=== PATIENT | male | born 1950 | race Caucasian/White ===

== ENCOUNTER 2018-04-09 07:55 | Inpatient (IN) | payer OTHER ==
[2018-04-09] MEDS: NICARDipine HCL 30 MG CAPSULE PO (08:27)
[2018-04-09] MEDS: ASPIRIN 325 MG TAB PO (08:28)
[2018-04-09] MEDS: LABETALOL HCL 20MG INJ IV (08:28)
[2018-04-09 08:48] LABS: ADD MAN DIFF? NO
[2018-04-09 08:53] LABS: BASOPHIL # 0.1 10^3/ul (0.0-0.1); BASOPHILS % 1.6 % (0.0-2.0); EOSINOPHILS # 0.1 10^3/ul (0.0-0.5); EOSINOPHILS % 1.3 % (0.0-7.0); HEMATOCRIT 44.3 % (42.0-52.0); HEMOGLOBIN 14.6 g/dl (14.0-18.0); LYMPHOCYTES # 0.9 10^3/ul (0.8-2.9); LYMPHOCYTES % 12.6 % (15.0-51.0); MEAN CORPUSCULAR HEMOGLOBIN 29.9 pg (29.0-33.0); MEAN CORPUSCULAR VOLUME 90.8 fl (82.0-101.0); MEAN PLATELET VOLUME 12.1 fl (7.4-10.4); MONOCYTE # 0.4 10^3/ul (0.3-0.9); MONOCYTES % 5.4 % (0.0-11.0); NEUTROPHIL # 5.5 10^3/ul (1.6-7.5); NEUTROPHILS % 78.8 % (39.0-77.0); PLATELET COUNT 199 10^3/UL (140-415); RED BLOOD COUNT 4.88 10^6/ul (4.70-6.10); RED CELL DISTRIBUTION WIDTH 14.2 % (11.5-14.5)
[2018-04-09] MEDS: FUROSEMIDE 40 MG INJ IV ×2 (09:14→17:47)
[2018-04-09 09:22] LABS: ALANINE AMINOTRANSFERASE 29 IU/L (13-69); ALBUMIN 3.7 g/dl (3.3-4.9); ALBUMIN/GLOBULIN RATIO 1.27; ALKALINE PHOSPHATASE 58 IU/L (42-121); ANION GAP 11 (8-16); ASPARTATE AMINO TRANSFERASE 31 IU/L (15-46); BILIRUBIN,INDIRECT 1.4 mg/dl (0-1.1); BILIRUBIN,TOTAL 1.4 mg/dl (0.2-1.3); BLOOD UREA NITROGEN 19 mg/dl (7-20); CALCIUM 8.7 mg/dl (8.4-10.2); CARBON DIOXIDE 24 mmol/L (21-31); CHLORIDE 113 mmol/L (97-110); CREATININE 0.72 mg/dl (0.61-1.24); GLUCOSE 136 mg/dl (70-220); POTASSIUM 3.8 mmol/L (3.5-5.1); SODIUM 144 mmol/L (135-144); TOTAL PROTEIN 6.6 g/dl (6.1-8.1)
[2018-04-09 09:33] LABS: B-TYPE NATRIURETIC PEPTIDE 6850 PG/ML (0-125); TROPONIN-I 0.023 ng/ml (0.000-0.120)
[2018-04-09] MEDS: HYDROmorphONE 1 MG/ML SYG IV (10:18)
[2018-04-09] MEDS: ONDANSETRON 4 MG INJ IV (10:18)
[2018-04-09] MEDS ORDERED: ONDANSETRON 4 MG INJ IV ×2 (10:30→11:30)
[2018-04-09] MEDS ORDERED: ACETAMINOPHEN 325 MG TAB PO ×2 (10:30→11:30)
[2018-04-09] MEDS ORDERED: NACL 0.9% 3 ML SYG IV (11:30)
[2018-04-09] MEDS: SOD CHLORIDE 0.9% 100 ML (11:49)
[2018-04-09 11:50] LABS: HEMOGLOBIN A1C 5.7 % (0-5.9)
[2018-04-09] MEDS: IOHEXOL 300MG/ML 150 ML BTL (11:50)
[2018-04-09] MEDS: HYDROCODONE/APAP (5/325) TAB PO (12:53)
[2018-04-09] MEDS ORDERED: hydrALAzine 20 MG INJ IV (14:30)
[2018-04-09 15:15] LABS: CREATINE KINASE 63 IU/L (23-200)
[2018-04-09 15:29] LABS: CK INDEX 2.9; CK-MB 1.83 ng/ml (0.0-2.4); TROPONIN-I 0.025 ng/ml (0.000-0.120)
[2018-04-09 15:47] LABS: PROSTATE SPECIFIC ANTIGEN 5.6 ng/ml (0.0-4.0)
[2018-04-09] MEDS: morphine 2 MG INJ IV (15:50)
[2018-04-09] MEDS ORDERED: morphine 2 MG INJ IV (16:00)
[2018-04-09] MEDS: SPIRONOLACTONE 25 MG TAB PO (19:01)
[2018-04-09] MEDS: POTASSIUM CHLORIDE (SR) 20 MEQ TAB PO (19:01)
[2018-04-09 19:06] LABS: ADD UMIC YES; UR ASCORBIC ACID NEGATIVE (NEGATIVE); UR BILIRUBIN (Dip) NEGATIVE (NEGATIVE); UR BLOOD (Dip) 3+ mg/dL (NEGATIVE); UR CLARITY CLEAR (CLEAR); UR COLOR STRAW (YELLOW); UR GLUCOSE (Dip) NEGATIVE (NEGATIVE); UR KETONES (Dip) NEGATIVE (NEGATIVE); UR LEUKOCYTE ESTERASE (Dip) NEGATIVE Leu/ul (NEGATIVE); UR NITRITE (Dip) NEGATIVE (NEGATIVE); UR RBC > 182 /HPF (0-5); UR SPECIFIC GRAVITY (Dip) 1.017 (1.003-1.030); UR TOTAL PROTEIN (Dip) NEGATIVE (NEGATIVE); UR UROBILINOGEN (Dip) NEGATIVE (NEGATIVE); UR WBC 6 /HPF (0-5)
[2018-04-09] MEDS ORDERED: TAMSULOSIN (SR) 0.4 MG CAP PO (21:00)
[2018-04-09] MEDS ORDERED: METOPROLOL 25 MG TAB PO (21:00)
[2018-04-09] MEDS: TAMSULOSIN (SR) 0.4 MG CAP PO (21:01)
[2018-04-09] MEDS: LOSARTAN 50 MG TAB PO (21:01)
[2018-04-10 06:06] LABS: ADD MAN DIFF? NO
[2018-04-10 06:17] LABS: BASOPHIL # 0.1 10^3/ul (0.0-0.1); BASOPHILS % 1.3 % (0.0-2.0); EOSINOPHILS # 0.1 10^3/ul (0.0-0.5); EOSINOPHILS % 1.8 % (0.0-7.0); HEMATOCRIT 43.2 % (42.0-52.0); HEMOGLOBIN 14.1 g/dl (14.0-18.0); LYMPHOCYTES # 0.9 10^3/ul (0.8-2.9); LYMPHOCYTES % 12.2 % (15.0-51.0); MEAN CORPUSCULAR HEMOGLOBIN 30.1 pg (29.0-33.0); MEAN CORPUSCULAR HGB CONC 32.6 g/dl (32.0-37.0); MEAN CORPUSCULAR VOLUME 92.1 fl (82.0-101.0); MEAN PLATELET VOLUME 11.9 fl (7.4-10.4); MONOCYTE # 0.5 10^3/ul (0.3-0.9); MONOCYTES % 6.4 % (0.0-11.0); NEUTROPHIL # 5.9 10^3/ul (1.6-7.5); NEUTROPHILS % 77.8 % (39.0-77.0); PLATELET COUNT 195 10^3/UL (140-415); RED BLOOD COUNT 4.69 10^6/ul (4.70-6.10); RED CELL DISTRIBUTION WIDTH 14.4 % (11.5-14.5)
[2018-04-10 06:17] LABS: WHITE BLOOD COUNT 7.6 10^3/ul (4.8-10.8)
[2018-04-10] MEDS: FUROSEMIDE 40 MG INJ IV ×2 (06:28→17:48)
[2018-04-10 06:37] LABS: INR 1.17; PROTIME 15.1 Sec (11.9-14.9); PT RATIO 1.2
[2018-04-10 07:12] LABS: ALANINE AMINOTRANSFERASE 25 IU/L (13-69); ALBUMIN 3.2 g/dl (3.3-4.9); ALBUMIN/GLOBULIN RATIO 1.18; ALKALINE PHOSPHATASE 50 IU/L (42-121); ANION GAP 9 (8-16); ASPARTATE AMINO TRANSFERASE 27 IU/L (15-46); BILIRUBIN,INDIRECT 1.6 mg/dl (0-1.1); BILIRUBIN,TOTAL 1.6 mg/dl (0.2-1.3); BLOOD UREA NITROGEN 22 mg/dl (7-20); CALCIUM 8.7 mg/dl (8.4-10.2); CARBON DIOXIDE 27 mmol/L (21-31); CHLORIDE 112 mmol/L (97-110); CREATININE 0.87 mg/dl (0.61-1.24); GLUCOSE 103 mg/dl (70-220); POTASSIUM 4.1 mmol/L (3.5-5.1); SODIUM 144 mmol/L (135-144); TOTAL PROTEIN 5.9 g/dl (6.1-8.1)
[2018-04-10 07:23] LABS: B-TYPE NATRIURETIC PEPTIDE 5920 PG/ML (0-125)
[2018-04-10 08:24] LABS: TROPONIN-I 0.061 ng/ml (0.000-0.120)
[2018-04-10] MEDS: LOSARTAN 50 MG TAB PO ×2 (08:53→20:26)
[2018-04-10] MEDS: TAMSULOSIN (SR) 0.4 MG CAP PO ×2 (08:53→20:27)
[2018-04-10] MEDS: SPIRONOLACTONE 25 MG TAB PO (08:54)
[2018-04-10] MEDS: ENOXAPARIN 40 MG/0.4 ML SYG SC (09:07)
[2018-04-10 09:27] LABS: CHOL/HDL RATIO 5.6 RATIO; CHOLESTEROL 169 mg/dl (100-200); CK INDEX 4.2; CREATINE KINASE 36 IU/L (23-200); HDL CHOLESTEROL 30 mg/dl (30-78); LDL CHOLESTEROL,CALCULATED 117 mg/dl; TRIGLYCERIDES 110 mg/dl (0-149)
[2018-04-10 09:27] LABS: PHOSPHORUS 4.7 mg/dl (2.5-4.9)
[2018-04-10 13:34] LABS: FREE T4 (FREE THYROXINE) 1.03 ng/dl (0.78-2.44)
[2018-04-10] MEDS ORDERED: morphine LIQ (10 MG/5 ML) CUP PO (15:00)
[2018-04-10] MEDS: ATORVASTATIN 20 MG TAB PO (20:25)
[2018-04-11] MEDS: FUROSEMIDE 40 MG INJ IV (05:32)
[2018-04-11 05:50] LABS: ADD MAN DIFF? NO
[2018-04-11 06:03] LABS: BASOPHIL # 0.1 10^3/ul (0.0-0.1); BASOPHILS % 1.9 % (0.0-2.0); EOSINOPHILS # 0.4 10^3/ul (0.0-0.5); EOSINOPHILS % 5.5 % (0.0-7.0); HEMATOCRIT 43.4 % (42.0-52.0); HEMOGLOBIN 14.2 g/dl (14.0-18.0); LYMPHOCYTES # 1.2 10^3/ul (0.8-2.9); LYMPHOCYTES % 17.1 % (15.0-51.0); MEAN CORPUSCULAR HEMOGLOBIN 29.8 pg (29.0-33.0); MEAN CORPUSCULAR HGB CONC 32.7 g/dl (32.0-37.0); MEAN CORPUSCULAR VOLUME 91.2 fl (82.0-101.0); MONOCYTE # 0.5 10^3/ul (0.3-0.9); MONOCYTES % 7.6 % (0.0-11.0); NEUTROPHIL # 4.5 10^3/ul (1.6-7.5); NEUTROPHILS % 67.6 % (39.0-77.0); PLATELET COUNT 186 10^3/UL (140-415); RED BLOOD COUNT 4.76 10^6/ul (4.70-6.10); RED CELL DISTRIBUTION WIDTH 13.9 % (11.5-14.5)
[2018-04-11 06:03] LABS: WHITE BLOOD COUNT 6.7 10^3/ul (4.8-10.8)
[2018-04-11 06:21] LABS: PHOSPHORUS 4.6 mg/dl (2.5-4.9)
[2018-04-11 06:37] LABS: B-TYPE NATRIURETIC PEPTIDE 2570 PG/ML (0-125)
[2018-04-11 06:59] LABS: ALANINE AMINOTRANSFERASE 26 IU/L (13-69); ALBUMIN 3.4 g/dl (3.3-4.9); ALBUMIN/GLOBULIN RATIO 1.21; ALKALINE PHOSPHATASE 50 IU/L (42-121); ANION GAP 8 (8-16); ASPARTATE AMINO TRANSFERASE 27 IU/L (15-46); BILIRUBIN,INDIRECT 1.4 mg/dl (0-1.1); BILIRUBIN,TOTAL 1.4 mg/dl (0.2-1.3); BLOOD UREA NITROGEN 26 mg/dl (7-20); CALCIUM 8.9 mg/dl (8.4-10.2); CARBON DIOXIDE 32 mmol/L (21-31); CHLORIDE 105 mmol/L (97-110); CREATININE 0.81 mg/dl (0.61-1.24); GLUCOSE 111 mg/dl (70-220); MAGNESIUM 1.9 mg/dl (1.7-2.5); POTASSIUM 3.7 mmol/L (3.5-5.1); SODIUM 141 mmol/L (135-144); TOTAL PROTEIN 6.2 g/dl (6.1-8.1)
[2018-04-11] MEDS: LOSARTAN 50 MG TAB PO (09:24)
[2018-04-11] MEDS: SPIRONOLACTONE 25 MG TAB PO (09:24)
[2018-04-11] MEDS: TAMSULOSIN (SR) 0.4 MG CAP PO (09:25)
[2018-04-11] MEDS: ENOXAPARIN 40 MG/0.4 ML SYG SC (09:32)
== END 2018-04-11 12:00 | disposition home or self-care (01) | DRG 292 ==
LOC: E/R 07:55 → 6WM 10:02
DX: I11.0 Hypertensive heart disease with heart failure (principal); N13.8 Other obstructive and reflux uropathy; M79.9 Soft tissue disorder, unspecified; I34.0 Nonrheumatic mitral (valve) insufficiency; I42.0 Dilated cardiomyopathy; R33.9 Retention of urine, unspecified; I50.23 Acute on chronic systolic (congestive) heart failure; N40.1 Benign prostatic hyperplasia with lower urinary tract symptoms; I27.20 Pulmonary hypertension, unspecified
CPT/HCPCS: 36415; 71045; 74177; 80053; 80061; 81001; 82550; 82553; 83036; 83735; 83880; 84100; 84153; 84154; 84439; 84443; 84484; 85025; 85610; 85730; 87086; 93005; 93306; 96374; 96375; 99285-25